=== PATIENT | male | born 1960 | race Caucasian/White ===

== ENCOUNTER 2022-12-31 20:39 | Emergency (ER) | payer MEDICAID, OTHER ==
[~2022-12-31] VITALS: Ht 175.3 cm; Wt 72.6 kg
[2022-12-31 20:48] VITALS: BP 164/82; PULSE 83; RESP 16; TEMP 98.2; O2SAT 99
[2022-12-31 21:45] LABS: BASOPHILS % (AUTO) 0.5 % (0.0-2.0); EOSINOPHILS % (AUTO) 0.3 % (0.0-4.0); HEMATOCRIT 44.2 % (36-52); HEMOGLOBIN 15.2 g/dL (12.0-18.0); LYMPHOCYTES # (AUTO) 2.2 K/uL (2.0-11.5); MEAN CORPUSCULAR HEMOGLOBIN 32 pg (27-31); MEAN CORPUSCULAR HGB CONC 34 g/dL (33-37); MEAN CORPUSCULAR VOLUME 94.1 fL (80-94); MONOCYTES # (AUTO) 0.5 K/uL (0.8-1.0); MONOCYTES % (AUTO) 5.8 % (1.7-9.3); NEUTROPHILS # (AUTO) 6.4 K/uL (1.8-7.7); NEUTROPHILS % (AUTO) 69.4 % (42.2-75.2); PLATELET COUNT (AUTO) 179 K/uL (140-450); RED CELL DISTRIBUTION WIDTH 13.6 % (11.6-13.7); WHITE BLOOD COUNT (AUTO) 9.3 K/uL (4.8-10.8)
[2022-12-31 22:06] LABS: ALANINE AMINOTRANSFERASE 44 U/L (12-78); ALKALINE PHOSPHATASE 80 U/L (50-136); ANION GAP 12.9 (8-16); ASPARTATE AMINOTRANSFERASE 41 U/L (15-37); CARBON DIOXIDE 27.6 mmol/L (21-32); CHLORIDE 98 mmol/L (98-107); CREATININE 0.8 mg/dL (0.6-1.3); GFR ARICAN-AMERICAN 127 mL/min (>90); GFR NON ARICAN-AMERICAN 105 mL/min (>90); GLUCOSE 98 mg/dL (74-106); POTASSIUM 3.5 mmol/L (3.5-5.1); SODIUM SERUM 135 mmol/L (136-145); TOTAL PROTEIN, SERUM 7.6 g/dL (6.4-8.2); UREA NITROGEN, BLOOD 16 mg/dL (7-18)
[2022-12-31 22:09] LABS: CALCIUM 9.6 mg/dL (8.5-10.1)
[2022-12-31 22:47] VITALS: BP 161/81; PULSE 85; RESP 15; TEMP 98.2; O2SAT 98
== END 2022-12-31 22:47 | disposition home or self-care (01) ==
LOC: MED 20:39
DX: R20.0 Anesthesia of skin (principal); R20.2 Paresthesia of skin; R06.4 Hyperventilation; F41.0 Panic disorder [episodic paroxysmal anxiety]; E11.9 Type 2 diabetes mellitus without complications; I10 Essential (primary) hypertension
CPT/HCPCS: 36415; 80053; 82948; 83735; 84100; 84484; 85025; 99283

== ENCOUNTER 2023-01-02 15:37 | Emergency (ER) | payer MEDICAID, OTHER ==
[~2023-01-02] VITALS: Ht 175.3 cm; Wt 72.6 kg
[2023-01-02 16:56] VITALS: BP 142/90; PULSE 110; RESP 18; TEMP 98.4; O2SAT 96
[2023-01-03 01:06] VITALS: BP 143/80; PULSE 87; RESP 16; O2SAT 98
[2023-01-03] MEDS ORDERED: GABA300C PO ×2 (11:32→11:35)
== END 2023-01-03 01:06 | disposition home or self-care (01) ==
LOC: MED 15:37
DX: R06.4 Hyperventilation (principal); F41.9 Anxiety disorder, unspecified; E11.9 Type 2 diabetes mellitus without complications; I10 Essential (primary) hypertension
CPT/HCPCS: 70450; 99284

== ENCOUNTER 2023-01-03 08:34 | Emergency (ER) | payer MEDICAID, OTHER ==
[~2023-01-03] VITALS: Ht 175.3 cm; Wt 72.6 kg
[2023-01-03 08:56] VITALS: BP 166/107; PULSE 98; RESP 18; TEMP 97; O2SAT 99
[2023-01-03 10:10] VITALS: BP 145/78; PULSE 89; RESP 18; TEMP 97; O2SAT 99
[2023-01-03] MEDS ORDERED: GABA300C PO ×2 (11:32→11:35)
== END 2023-01-03 10:11 | disposition home or self-care (01) ==
LOC: MED 08:34
DX: E11.42 Type 2 diabetes mellitus with diabetic polyneuropathy (principal); I10 Essential (primary) hypertension; Z79.899 Other long term (current) drug therapy
CPT/HCPCS: 99281

== ENCOUNTER 2023-01-03 11:06 | Emergency (ER) | payer MEDICAID, OTHER ==
[~2023-01-03] VITALS: Ht 175.3 cm; Wt 72.6 kg
[2023-01-03 11:08] VITALS: BP 138/90; PULSE 87; RESP 18; TEMP 97.8; O2SAT 99
[2023-01-03] MEDS ORDERED: GABA300C PO ×2 (11:32→11:35)
[2023-01-03] MEDS ORDERED: GABAPENTIN 300 MG CAP PO ONE (11:35)
[2023-01-03 11:48] VITALS: BP 138/90; PULSE 87; RESP 18; TEMP 97.8; O2SAT 99
== END 2023-01-03 11:50 | disposition home or self-care (01) ==
LOC: MED 11:06
DX: G62.9 Polyneuropathy, unspecified (principal); F41.9 Anxiety disorder, unspecified; Z79.899 Other long term (current) drug therapy
CPT/HCPCS: 99283

== ENCOUNTER 2023-01-04 09:27 | Emergency (ER) | payer MEDICAID, OTHER ==
[~2023-01-04] VITALS: Ht 175.3 cm; Wt 62.3 kg
[~2023-01-04 09:27] MED LIST: GABA300C PO
[2023-01-04 09:45] VITALS: BP 157/100; PULSE 97; RESP 18; TEMP 97.7; O2SAT 9
[2023-01-04 09:50] VITALS: O2SAT 9
[2023-01-04 10:42] VITALS: BP 165/92; PULSE 97; RESP 15; TEMP 97.8
== END 2023-01-04 10:43 | disposition home or self-care (01) ==
LOC: MED 09:27
DX: R20.2 Paresthesia of skin (principal); I10 Essential (primary) hypertension; F17.200 Nicotine dependence, unspecified, uncomplicated; Z98.890 Other specified postprocedural states; Z79.899 Other long term (current) drug therapy
CPT/HCPCS: 99282

== ENCOUNTER 2023-01-05 07:32 | Emergency (ER) | payer MEDICAID, OTHER ==
[~2023-01-05] VITALS: Ht 175.3 cm; Wt 70.3 kg
[2023-01-05 07:48] VITALS: BP 151/80; PULSE 84; RESP 17; TEMP 97.4; O2SAT 98
[2023-01-05] MEDS ORDERED: GABAPENTIN 300 MG CAP PO ONE (08:10)
[2023-01-05 09:13] VITALS: BP 148/82; PULSE 78; RESP 18; TEMP 97.4; O2SAT 98
== END 2023-01-05 09:12 | disposition home or self-care (01) ==
LOC: MED 07:32
DX: R20.2 Paresthesia of skin (principal); R20.0 Anesthesia of skin; I10 Essential (primary) hypertension; Z79.899 Other long term (current) drug therapy
CPT/HCPCS: 99283

== ENCOUNTER 2023-01-18 17:31 | Emergency (ER) | payer MEDICAID, OTHER ==
[~2023-01-18] VITALS: Ht 170.2 cm; Wt 72.6 kg
[2023-01-18 17:34] VITALS: BP 196/96; PULSE 80; RESP 20; TEMP 98.1; O2SAT 95
[2023-01-18] MEDS ORDERED: ACETAMINOPHEN 325 MG TAB PO ONE (17:40)
[2023-01-18 18:15] LABS: MEAN CORPUSCULAR HGB CONC 34 g/dL (33-37); WHITE BLOOD COUNT (AUTO) 5.5 K/uL (4.8-10.8)
[2023-01-18 18:22] LABS: ANION GAP 12.9 (8-16); CALCIUM 9.2 mg/dL (8.5-10.1); CREATININE 0.7 mg/dL (0.6-1.3); POTASSIUM 3.9 mmol/L (3.5-5.1)
[2023-01-18 18:29] LABS: BASOPHILS % (AUTO) 0.9 % (0.0-2.0); EOSINOPHILS # (AUTO) 0.1 K/uL (0-0.4); EOSINOPHILS % (AUTO) 1.5 % (0.0-4.0); HEMATOCRIT 48.2 % (36-52); HEMOGLOBIN 16.4 g/dL (12.0-18.0); LYMPHOCYTES # (AUTO) 1.6 K/uL (2.0-11.5); LYMPHOCYTES % (AUTO) 29.7 % (20.5-51.1); MEAN CORPUSCULAR HEMOGLOBIN 33 pg (27-31); MEAN CORPUSCULAR VOLUME 96.6 fL (80-94); MONOCYTES # (AUTO) 0.3 K/uL (0.8-1.0); MONOCYTES % (AUTO) 6.2 % (1.7-9.3); NEUTROPHILS # (AUTO) 3.4 K/uL (1.8-7.7); NEUTROPHILS % (AUTO) 61.7 % (42.2-75.2); PLATELET COUNT (AUTO) 194 K/uL (140-450); RED BLOOD CELL COUNT(AUTO) 4.99 MIL/uL (4.20-6.10); RED CELL DISTRIBUTION WIDTH 13.8 % (11.6-13.7)
[2023-01-18] MEDS ORDERED: ACET-11169 PO (18:49)
[2023-01-18] MEDS ORDERED: ACETAMINOPHEN 325 MG TAB ONE (20:00)
[2023-01-18 20:08] VITALS: BP 144/76; PULSE 88; RESP 16; TEMP 98.1; O2SAT 99
== END 2023-01-18 20:08 | disposition home or self-care (01) ==
LOC: MED 17:55
DX: R20.0 Anesthesia of skin (principal); E11.9 Type 2 diabetes mellitus without complications; I10 Essential (primary) hypertension; Z79.899 Other long term (current) drug therapy
CPT/HCPCS: 36415; 80048; 85025; 99283

== ENCOUNTER 2023-01-26 20:41 | Emergency (ER) | payer MEDICAID ==
[~2023-01-26] VITALS: Ht 175.3 cm; Wt 68.0 kg
[~2023-01-26 20:41] MED LIST changes: +ACET-11169 PO
[2023-01-26 20:46] VITALS: BP 194/111; PULSE 112; RESP 16; TEMP 97.4; O2SAT 98
[2023-01-26] MEDS ORDERED: BACITRACIN OINT 500 UNITS/GM PKT TP ONE ×2 (21:05→21:20)
[2023-01-26] MEDS ORDERED: chlordiazePOXIDE 25 MG CAP PO SCH (23:15)
== END 2023-01-26 23:40 | disposition home or self-care (01) ==
LOC: MED 20:41
DX: S61.412A Laceration without foreign body of left hand, initial encounter (principal); S61.411A Laceration without foreign body of right hand, initial encounter; X58.XXXA Exposure to other specified factors, initial encounter; Y93.89 Activity, other specified; Y92.89 Other specified places as the place of occurrence of the external cause; Y99.8 Other external cause status
CPT/HCPCS: 73120; 90471; 90715; 99283